=== PATIENT | male | born 1980 | race Caucasian/White ===

== ENCOUNTER 2021-05-04 03:49 | Emergency (ER) | payer BC ==
[~2021-05-04] VITALS: Ht 180.3 cm; Wt 81.7 kg
[2021-05-04 03:50] VITALS: BP 139/96
[2021-05-04] MEDS ORDERED: NORCO5 PO (04:47)
== END 2021-05-04 06:10 | disposition home or self-care (01) ==
LOC: ER 03:49
DX: S82.55XA Nondisplaced fracture of medial malleolus of left tibia, initial encounter for closed fracture (principal); F19.20 Other psychoactive substance dependence, uncomplicated; W18.31XA Fall on same level due to stepping on an object, initial encounter; Y93.89 Activity, other specified; Y92.89 Other specified places as the place of occurrence of the external cause; Y99.8 Other external cause status